=== PATIENT | female | born 1980 | race African-American/Black ===

== ENCOUNTER → 2023-01-04 | Outpatient (CLI) | payer OTHER ==
[~2023-01-04] MED LIST: DOCU5LIQ OR; IBUP80TA OR; MAPA500T17 OR; PNV-CAP5 PO
== END ==
LOC: M WHC 07:29
PROVIDERS: ATTEND Emergency Medicine
DX: Z12.31 Encounter for screening mammogram for malignant neoplasm of breast (principal)